=== PATIENT | female | born 1985 | race Caucasian/White ===

== ENCOUNTER 2024-08-28 15:25 | Emergency (ER) | payer OTHER, SELFPAY ==
[2024-08-28 15:27] VITALS: BP 153/91
[2024-08-28 17:11] VITALS: BP 131/91
[2024-08-28 17:20] LABS: % Basophils 0.3 % (0-2); % Immature Granulocytes 0.3 % (0-0.5); % Lymphocytes 13.5 % (20.5-51.1); % Monocytes 5.6 % (1.7-9.3); % Neutrophils 79.3 % (42.2-75.2); Absolute Eosinophils 0.1 10^3/uL (0-0.7); Absolute Lymphocytes 1.6 10^3/uL (1.2-3.4); Absolute Monocytes 0.7 10^3/uL (0.1-0.6); Absolute Neutrophils 9.4 10^3/uL (1.4-6.5); Hematocrit 37.2 % (37.0-47.0); Hemoglobin 12.8 g/dL (12.0-16.0); Mean Corp Hgb Conc. 34.4 g/dL (33.0-37.0); Mean Corpuscular Hgb 31.2 pg (27.0-31.0); Mean Corpuscular Volume 90.7 fL (81.0-99.0); Mean Platelet Volume 8.5 fL (7.4-10.4); Nucleated Red Blood Cells % 0 %; Platelet Count 290 10^3/uL (130-400); Red Cell Dist. Width 11.9 % (11.5-14.5); White Blood Cell Count 11.9 10^3/uL (4.8-10.8)
--- NOTE | 2024-08-28 17:22 | ED.MUSCINJ ---
HPI-Injury
General
Chief Complaint: Extremity Pain (non-traumatic)
Source: patient
Exam Limitations: none
Time Seen by Provider: 08/28/24 17:12
History of Present Illness-Injury
Initial Injury comments:
39-year-old otherwise healthy female presents complaining of worsening right elbow pain and swelling over the past 2 to 3 days. No known injury. She notes she feels fatigued and achy. She notes chills as well. No measurable fever. Nondiabetic.
States the swelling and redness got worse today. Her motion is decreased because of the pain. No symptoms in the past similar to this. She does have eczema
Past History
Past History
ED Past Medical History: Other (Constipation, chronic back pain, DJD); Negative Asthma, HTN, Hypercholesterolemia or NIDDM
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
Social History
Tobacco: Non-smoker
Alcohol: Occasional
Drug: None
Personal: Single
Living: alone
Employment: Employed
Phy Exam
Physical Exam
Physical Exam:
General: Well-appearing female no acute respiratory distress
HEENT: Normocephalic atraumatic
Heart: Regular rate and rhythm no murmur
Lungs: Clear no wheeze
Skin: Erythema and subtle induration noted over the right olecranon area and proximal forearm ulnarly. There is no open wound. There is no fluctuance or drainage
Musculoskeletal exam: Right elbow tender to the touch diffusely. She has full extension flexion is to about 90 degrees
Vascular: 2+ radial pulse
Injury Course
Orders/Labs/Results
Orders:
Orders
08/28/24 17:14
CMP [Comprehensive Metabolic Panel] Urgent
Complete Blood Count/With Diff Urgent
08/28/24 17:21
Ketorolac [Toradol] 15 mg IV NOW STA
CR Elbow - Right Min 3 Views Urgent
Comment:
Reason For Exam: pain, swelling
08/28/24 19:17
Doxycycline [Vibramycin] 100 mg PO NOW STA
Abnormal Lab Results
08/28/24
17:14
WBC 11.9 H 10^3/uL
(4.8-10.8)
RBC 4.10 L 10^6/uL
(4.20-5.40)
MCH 31.2 H pg
(27.0-31.0)
Absolute Neuts (auto) 9.4 H 10^3/uL
(1.4-6.5)
Absolute Monos (auto) 0.7 H 10^3/uL
(0.1-0.6)
Neutrophils % 79.3 H %
(42.2-75.2)
Lymphocytes % 13.5 L %
(20.5-51.1)
Creatinine 0.5 L mg/dL
(0.6-1.0)
08/28/24 17:14
08/28/24 17:14
MDM/Problems Addressed
Differential Diagnosis Includes:
Right elbow pain and swelling. Differential could include cellulitis versus bursitis versus foreign body versus septic arthritis
Patient is healthy other than history of eczema. She does have eczema currently on her arms. Question possible source of potential infection of dry cracked skin. Will order x-ray to evaluate trauma or foreign bodies.
Check labs. Consider antibiotics. Toradol ordered for pain.
*Critical Care Note
Total Time (30-74mins, 75-104mins- exclusive of procedures): Not Applicable
Update Note
Update Note:
X-ray negative for foreign body or joint effusion. Will prescribe for cellulitis olecranon bursitis. Do not dorsalis arthritis. Patient stable for discharge
ED Attending Note
-
Portions of this chart may have been created with voice recognition software.� Occasional wrong word or��sound alike� substitutions may have occurred due to the inherent limitations of voice recognition software.
Discharge Plan
Departure
Patient Disposition: Home (Routine Discharge)
Date of Disposition: 08/28/24
Time of Disposition: 20:13
Patient with high blood pressure during this ER visit?: No
Discharge Problem:
Bursitis
Instructions: Cellulitis (skin infection) in adults - ED discharge instructions
Prescriptions:
New
doxycycline hyclate 100 mg capsule
100 mg PO BID Qty: 14 0RF
No Action
drospirenone-ethinyl estradiol [Virginie (28)] 1 EACH tablet
1 tab PO DAILY
multivitamin [Ktp-Zhrtlb-Resod] 1 EACH tablet
1 ea PO DAILY
levofloxacin 500 MG tablet
500 mg PO DAILY Qty: 5 0RF
indomethacin 50 MG capsule
50 mg PO TID Qty: 15 0RF
Rx Instructions:
Take with food
fluconazole 150 MG tablet
150 mg PO DAILY Qty: 1 0RF
hydrocodone-acetaminophen 1 TABLET tablet
1 tab PO Q4HPRN PRN (Reason: pain) Qty: 7 0RF
cyclobenzaprine 10 MG tablet
10 mg PO TIDPRN PRN (Reason: moderate pain) Qty: 20 0RF
Referrals:
Glen Carroll DO [Family Provider] -
Activity Restrictions/Additional Instructions:
Take antibiotic as directed. Use warm compresses several times a day. Return here if you develop increasing redness swelling pain fever vomiting or other concerning finding. Follow-up with your doctor otherwise
Interventions
Interventions:
*Risk Screen - Suicide Last Done: 08/28/24 15:27
*General Assessment Last Done: 08/28/24 17:11
*Neglect/Abuse Screening Last Done: 08/28/24 15:27
ED- Fall Risk Assessment Last Done: 08/28/24 17:11
*ED COVID-19 Vaccine History Last Done: 08/28/24 17:11
ED-Skin Assessment Last Done: 08/28/24 17:11
ED-Peripheral Vascular Assessment Last Done: 08/28/24 17:11
ED-Musculoskeletal Assessment Last Done: 08/28/24 17:11
Discharge Date and Time
Print Language: YAKUT
[2024-08-28] MEDS: TORADOL 15 MG IV (17:32)
[2024-08-28 17:43] LABS: ALT (SGPT) 19 U/L (0-35); AST (SGOT) 27 U/L (14-36); Albumin 4.8 g/dl (3.5-5.0); Alkaline Phosphatase 62 U/L (38-126); Blood Urea Nitrogen 8 mg/dl (7-17); Calcium 9.4 mg/dl (8.4-10.2); Carbon Dioxide 25 mmol/L (22-30); Chloride 102 mmol/L (98-107); Glucose 87 mg/dl (70-99); Potassium 4.4 mmol/L (3.5-5.1); Sodium 135 mmol/L (135-145); Total Bilirubin 0.5 mg/dl (0.2-1.3); Total Protein 7.7 g/dl (6.3-8.2); eGFR > 60.00
[2024-08-28] MEDS: VIBRAMYCIN 100 MG PO (19:38)
[2024-08-28 20:09] VITALS: BP 122/71
== END 2024-08-28 20:20 | disposition home or self-care (01) ==
LOC: EMR 15:25
PROVIDERS: Physician Assistant; EMERGENCY PHYSICIAN Emergency Medicine; FAMILY PHYSICIAN Family Medicine
DX: M70.31 Other bursitis of elbow, right elbow (principal); G89.29 Other chronic pain; M19.90 Unspecified osteoarthritis, unspecified site
CPT/HCPCS: 99283; 96374; 73080; 80053; 85025

== ENCOUNTER 2024-11-27 10:01 | Emergency (ER) | payer OTHER, SELFPAY ==
[2024-11-27 10:06] VITALS: BP 121/74
[2024-11-27] MEDS: LIDOCAINE 4% PATCH 1 PATCH TOPICAL (10:40)
[2024-11-27] MEDS: DECADRON 10 MG IM (10:40)
[2024-11-27] MEDS: VALIUM 5 MG PO (10:41)
--- NOTE | 2024-11-27 10:43 | ED.GENMED ---
History of Present Illness
General
Chief Complaint: Back Pain
Source: patient
Time Seen by Provider: 11/27/24 10:15
History of Present Illness
History of Present Illness:
39-year-old female with past medical history of degenerative disc disease presenting to the emergency department for evaluation of lower back pain that started about 6 days ago as a mild dull ache but over the last 4 days has become more sharp,
radiating down her left leg accompanied with paresthesia mainly along the medial aspect of the ankle and foot, unrelieved with meloxicam and cyclobenzaprine that was prescribed to her by her primary care provider 2 days ago. Patient states
overnight the pain seemed to get worse which is what prompted her to come to the ER today. Patient does see a pain management/senior education specialist at [facility], Dr. Hernandez, who has done back injections previously but patient has not needed this in at
least 3 years. Patient otherwise denies any traumatic injuries, bowel or bladder incontinence, saddle anesthesia, fevers or infectious symptoms, traumatic injuries or any other concerns.
Past History
Past History
ED Past Medical History: Other (Constipation, chronic back pain, DJD); Negative Asthma, HTN, Hypercholesterolemia or NIDDM
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
Social History
Tobacco: Non-smoker
Alcohol: Occasional
Drug: None
Personal:
Living: with family
Employment: Employed
Review of Systems
Review of Systems
All Other Systems: ROS reviewed and negative except as documented in HPI and ROS
Phy Exam
Physical Exam
Physical Exam:
GENERAL: Alert , in no apparent distress but does appear uncomfortable, has a hard time sitting still in bed
EYE: clear conjunctiva b/l
NECK: Supple
ENT: mmm.
BACK: Limited range of motion secondary to pain, moderate left sacroiliac tenderness extending into the buttock, no midline bony tenderness, no rashes
NEUROLOGICAL: Alert and oriented, no focal neuro deficits. Patellar deep tendon reflexes intact and equal bilaterally, patellar deep tendon reflex 2 on the left, 2+ on the right, sensation slightly diminished along the medial foot on the left
compared to the right
SKIN: Warm and dry, skin intact.
MUSCULOSKELETAL: No edema, well perfused. EHL slightly weaker on the left compared to the right
PSYCH: Normal and appropriate interaction.
Scores
Heart Failure Risk
Heart Failure Risk Score: Not Applicable
Heart Score for Chest Pain Patients
STEMI patient?: Not applicable
Withdrawal Assessment of Alcohol
Withdrawal Assessment Completed?: Not applicable
Course
Orders/Labs/Results
Orders:
Orders
11/27/24 10:33
Dexamethasone Sod Phosphate [Decadron] 10 mg IM NOW STA
Diazepam [Valium] 5 mg PO NOW STA
Lidocaine [Lidocaine 4% Patch] 1 patch TOPICAL NOW STA
Apply Lidocaine patch(s) to:: left lower back
CR Lumbar Spine Comp Min 4 Vw* Urgent
Comment:
Reason For Exam: worsening left sided lower back pain
11/27/24 11:32
Oxycodone/Acetaminophen [Percocet 5/325] 1 tablet PO NOW STA
Vital Signs
Initial and Last Documented VS:
Initial Vital Signs
Temp Pulse Resp BP Pulse Ox
98.2 F 82 16 121/74 100
11/27/24 10:06 11/27/24 10:06 11/27/24 10:06 11/27/24 10:06 11/27/24 10:06
Last Documented Vital Signs
Temp Pulse Resp BP Pulse Ox
98.2 F 82 16 121/74 100
11/27/24 10:06 11/27/24 10:06 11/27/24 10:06 11/27/24 10:06 11/27/24 10:06
MDM/Problems Addressed
Differential Diagnosis Includes:
Disc herniation, nerve impingement, compression fracture, cauda equina, sciatica
MDM/Problems Addressed:
39-year-old female presenting to the ER for gradually worsening left-sided lower back pain. Patient does have subjective and objective findings of some weakness and diminished sensation to the left lower extremity compared to the right. History of
known degenerative disc disease requiring injections previously. Already has an appointment scheduled with her pain management/senior education specialist on December 04 but did not feel she would be able to make that appointment without further pain control. No
relief with meloxicam and cyclobenzaprine. Will treat here with steroid injection, Valium for muscle relaxation and topical agent. Will try to contact patient's pain management in hopes to move appointment up or obtain MRI
*Radiology
Radiology exam reviewed: preliminary read by ED provider (Degenerative changes, no fracture)
*Pulse Oximetry
Patient hypoxic: no
*Critical Care Note
Total Time (30-74mins, 75-104mins- exclusive of procedures): Not Applicable
Patient Management
Discussion with other providers: Inpatient Nursing Aide
Escalation/DeEscalation of care consider admission/obs:
I spoke to the office staff at [facility]'s [facility], unfortunately they are unable to move the patient's appointment up however they did send a notification to patient's provider requesting an MRI be ordered so as patient can obtain
this hopefully prior to her appointment on December 04.
Patient's x-ray is largely unremarkable for any acute pathologies. There are mild degenerative changes noted and straightening of the natural spinal curve. Patient with minimal relief following medications given. She has tolerated Percocet before
we will give her dose of this and send prescription for this to pharmacy. Bladder scan was also performed which only showed 50 mL within the bladder. At this time I do think it is reasonable for patient to be discharged home with continued
outpatient follow-up. Aware of return precautions to the ER.
ED Attending Note
-
Portions of this chart may have been created with voice recognition software.� Occasional wrong word or��sound alike� substitutions may have occurred due to the inherent limitations of voice recognition software.
Discharge Plan
Departure
Patient Disposition: Home (Routine Discharge)
Date of Disposition: 11/27/24
Time of Disposition: 11:33
Patient with high blood pressure during this ER visit?: No
Discharge Problem:
Acute left lumbar radiculopathy
Instructions: Radiculopathy (DC)
Prescriptions:
New
methylprednisolone [Medrol (Jelani)] 4 mg tablets,dose pack
4 mg PO DIRECTED Qty: 21 0RF
oxycodone-acetaminophen [Percocet] 5-325 mg tablet
1 tab PO Q4HPRN PRN (Reason: pain) Qty: 8 0RF
No Action
drospirenone-ethinyl estradiol [Virginie (28)] 1 EACH tablet
1 tab PO DAILY
multivitamin [Rih-Fdxnoc-Jpqin] 1 EACH tablet
1 ea PO DAILY
levofloxacin 500 MG tablet
500 mg PO DAILY Qty: 5 0RF
indomethacin 50 MG capsule
50 mg PO TID Qty: 15 0RF
Rx Instructions:
Take with food
fluconazole 150 MG tablet
150 mg PO DAILY Qty: 1 0RF
hydrocodone-acetaminophen 1 TABLET tablet
1 tab PO Q4HPRN PRN (Reason: pain) Qty: 7 0RF
cyclobenzaprine 10 MG tablet
10 mg PO TIDPRN PRN (Reason: moderate pain) Qty: 20 0RF
doxycycline hyclate 100 mg capsule
100 mg PO BID Qty: 14 0RF
Referrals:
Glen Carroll DO [Family Provider] -
Interventions
Interventions:
*Risk Screen - Suicide Last Done: 11/27/24 10:06
*General Assessment Last Done: 11/27/24 10:06
*Neglect/Abuse Screening Last Done: 11/27/24 10:06
*ED COVID-19 Vaccine History Last Done: 11/27/24 10:06
*Nursing Disposition Last Done: 11/27/24 12:00
ED-Musculoskeletal Assessment Last Done: 11/27/24 10:40
Discharge Date and Time
Discharge Date/Time: 11/27/24 12:01
Print Language: HUNGARIAN
[2024-11-27] MEDS: PERCOCET 5/325 1 TABLET PO (11:42)
== END 2024-11-27 12:01 | disposition home or self-care (01) ==
LOC: EMR 10:01
PROVIDERS: EMERGENCY PHYSICIAN Emergency Medicine; FAMILY PHYSICIAN Family Medicine
DX: M54.16 Radiculopathy, lumbar region (principal); G89.29 Other chronic pain
CPT/HCPCS: 96372; 99284; 72110